=== PATIENT | female | born 1995 ===

== ENCOUNTER → 2023-05-23 10:25 | Outpatient (CLI) | payer BC, SELFPAY ==
--- NOTE | ~2023-05-23 | US_ITS ---
Pelvic ultrasound. Clinical History: Abnormal uterine bleeding Technique: Realtime transabdominal scanning of the pelvis was performed. Color flow Doppler and Doppl er spectral analysis were performed. Findings: The uterus is anteverted. The endometrial stripe has a thickness of up to approximately 14 mm. No focal mass is identified. The right ovary measures 2.9 x 1.9 x 2.7 cm. No significant right ovarian or adnexal mass is seen. The left ovary measures 2.5 x 1.4 x 2.3 cm. No significant left ovarian or adnexal mass is seen. There is no evidence of free fluid in the cul de sac. Impression: No significant abnormality seen. Reviewed, dictated and finalized at location . Impression: No significant abnormality seen.
== END ==
PROVIDERS: PCP Advanced Practice Midwife; Visit Provider Advanced Practice Midwife
DX: N93.8 Other specified abnormal uterine and vaginal bleeding (principal)
CPT/HCPCS: 76856